=== PATIENT | male | born 1990 | race Caucasian/White ===

== ENCOUNTER 2020-04-24 14:24 | Outpatient (CLI) | payer BC, SELFPAY ==
--- NOTE | ~2020-04-24 | CT_ITS ---
EXAMINATION: CT sinus wo con DATE: 04/24/2020 14:40 INDICATION: Congestion. Chronic sinusitis. TECHNIQUE: Computed tomography (CT) of the paranasal sinuses was performed without contrast. Iterativ e reconstruction technique was employed. Exam dose: 289.66 mGy-cm total exam DLP. COMPARISON: None FINDINGS: There is prominent rightward deviation of the nasal septum. There is prominent soft tissue swelling of the inferior nasal turbinate, moderate prominent soft tiss ue swelling of the middle nasal turbinates. The ostiomeatal units are patent. The paranasal sinuses are normally developed and aerated. The mastoid air cells are normally developed and aerated. IMPRESSION: Prominent rightward deviation of nasal septum Soft tissue swelling of the nasal turbinates Patent paranasal sinuses, ostiomeatal units and mastoid air cells Reviewed, dictated and finalized at [facility]. Reviewed, dictated and finalized at location A. [employer]
== END 2020-04-24 14:25 | disposition home or self-care (01) ==
PROVIDERS: PCP Physician Assistant; Visit Provider Physician Assistant
DX: J32.9 Chronic sinusitis, unspecified (principal)
CPT/HCPCS: 70486

== ENCOUNTER 2021-05-10 18:53 | Emergency (ER) | payer BC, SELFPAY ==
--- NOTE | ~2021-05-10 | XR_ITS ---
XR hand LT min 3V 05/10/2021 19:57 Indication: Left hand pain after injury Procedure: 3 views left hand Comparison: 09/29/2007 Findings: There is a comminuted displaced tuft fracture left third distal phalanx with overlying soft tissue swelling. No foreign bodies. There is overlying soft tissue laceration. No other fracture. Impression: 1: Comminuted displaced tuft fracture left third distal phalanx. Reviewed, dictated and finalized at location A. TRICAL HARDWARE ENGINEER Impression: 1: Comminuted displaced tuft fracture left third distal phalanx.
[2021-05-10 19:18] VITALS: BP 124/84; PULSE 84; RESP 18; TEMP 36.3; O2SAT 100
--- NOTE | 2021-05-10 21:46 | ED.UPPEXIN ---
HPI - Extremity Injury (Upper) General Chief Complaint: Extremity Injury, Upper Stated Complaint: crush injury to finger Time Seen by Provider: 05/10/21 20:58 Source: patient Mode of arrival: ambulatory Limitations: no limitations History of Present Illness HPI narrative: This is a 30 year old male that presents to the ER for left third finger injury sustained yesterday. Reports he got his finger caught in a side by side. This happened yesterday afternoon. He wrapped it up and drove back home. He is not up to date on tetanus. Denies decreased ROM or numbness. Related Data Allergies Allergy/AdvReac Type Severity Reaction Status Date / Time No Known Drug Allergies Allergy Mild Unknown Verified 04/21/20 16:03 Review of Systems Review of Systems: CONSTITUTIONAL: Denies fever SKIN: Reports laceration MUSCULOSKELETAL: Reports joint pain, and myalgia. NEUROLOGIC: Denies numbness All systems reviewed & are unremarkable except as noted in HPI and below PMFSH Past Medical History Medical History (Updated 05/10/21 @ 23:04 by Mariah Simms PA-C) Healthy adult male Surgical History Surgical History No history of previous surgery Family History Family History Mother Patient's mother is in good health Father Patient's father is in good health Social History Social History Smoking status: Never smoker Second hand tobacco smoke exposure: No Alcohol intake: never Gender identity (if verbalized by the patient): Male Exam Narrative: GENERAL: Well-appearing, well-nourished, and in no acute distress. HEAD: Normocephalic, atraumatic. EYES: EOMI. EXTREMITIES: Normal range of motion. Left third finger distal phalanx with nail avulsed. Palmar aspect of the distal phalanx with superficial avulsion of the skin. Normal radial pulses. Normal sensation SKIN: Warm, dry, no rash. NEURO: No focal deficits. Alert and oriented x3. PSYCH: Normal mood and affect Course Vital Signs Vital signs: Vital Signs Temperature 97.4 F L 05/10/21 19:18 Pulse Rate 84 05/10/21 19:18 Respiratory Rate 18 05/10/21 19:18 Blood Pressure 124/84 05/10/21 19:18 Pulse Oximetry 100 05/10/21 19:18 Temperature 97.4 F L 05/10/21 19:18 Pulse Rate 84 05/10/21 19:18 Respiratory Rate 18 05/10/21 19:18 Blood Pressure 124/84 05/10/21 19:18 Pulse Oximetry 100 05/10/21 19:18 Procedures Laceration Laceration 1: Date: 05/10/21 Time: 23:00 Site: hand Side (If applicable): left Description: other (skin and nail avulsion) Local Anesthetic: lidocaine 1% Amount of anesthesia used (mL): 4 Pre-repair: irrigated extensively ====== Skin Level ====== ====== Subcutaneous Layer ====== ====== Muscle Layer ====== ====== Tendon Layer ====== Dressing: Wound was irrigated and covered with antibiotic ointment and a bandage Orthopedic Splinting/Casting Injury #1: Splinting/Casting Date: 05/10/21 Splinting/Casting Time: 23:00 Side: left Upper Extremity Injury Location: finger Upper Extremity Immobilizer: finger (other) Splint: prefabricated Pre-Formed: metal foam finger splint Pre-Procedure Neuro Vascular Exam: normal Post-Procedure Neuro Vascular Exam: normal MDM - Extremity Injury (Upper) MDM Narrative Medical decision making narrative: Patient presents to the emergency department after a left third finger injury sustained yesterday. Patient had avulsed some skin and his nail to the distal phalanx. His wound was thoroughly irrigated. He was updated on tetanus. Left hand x-ray shows a comminuted displaced tuft fracture of the left third distal phalanx. Wound was bandaged and splint applied. Patient was educated on wound care.
[2021-05-10] MEDS: LIDOCAINE HCL 1% LOCAL INJ 20 ML VIAL INFILTRATE (22:10)
[2021-05-10] MEDS: ceFAZolin SODIUM 1 GM VIAL IM (22:10)
[2021-05-10] MEDS: HYDROcodone/acetaminophen (*CRX) 5-325 MG TABLET 1 TAB PO (22:10)
[2021-05-10] MEDS: WATER, STERILE FOR INJECTION 10 ML VIAL XX (22:10)
[2021-05-10] MEDS: TETANUS,DIPHTHERIA,AC PERTUSSIS ADULT (0.5 ML) BOOSTRIX IM (22:14)
[2021-05-10 23:25] VITALS: BP 123/78; PULSE 79; RESP 18; O2SAT 99
== END 2021-05-10 23:26 | disposition home or self-care (01) ==
PROVIDERS: Emergency Provider Emergency Medicine; PCP Physician Assistant
DX: S62.633B Displaced fracture of distal phalanx of left middle finger, initial encounter for open fracture (principal); Z23 Encounter for immunization; W23.0XXA Caught, crushed, jammed, or pinched between moving objects, initial encounter
CPT/HCPCS: 29130; 73130; 90471; 90715; 96372; 99283; 99284; A9270; J0690

== ENCOUNTER 2024-08-22 13:04 | Emergency (ER) | payer BC, SELFPAY ==
[2024-08-22 13:06] VITALS: BP 136/93; PULSE 66; RESP 14; TEMP 36.6; O2SAT 99
[2024-08-22] MEDS: HYDROcodone/acetaminophen (*CRX) 5-325 MG TABLET 2 TAB PO (14:27)
[2024-08-22] MEDS: KETOROLAC 30 MG/ML VIAL (*BKC) IM (14:27)
--- OUTSIDE RECORDS SUMMARY | 2024-08-22 14:29 | XMS_ITS | Clinical Summary ---
Author Organization [facility] Address [address] [place] [address] Phone Care Team Providers Care Assisted Living Assistant Name Role Phone Joaquin Garibay PA-C Primary Care Provide r Medications HYDROcodone-acet aminophen (NORCO) 5-325 mg tablet Take 1 Tablet by mouth every 4 hours as needed for Pain, Moderate. Active ibuprofen (MOTRIN) 600 mg tablet Take 600 mg by mouth every 6 hours as needed for Pain, Mild. Active chlorhexidine gluconate 0.12 % Mouthwash 15 mL by Mouth/Throa t route 2 times daily. 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 Patient declined 06/01/2019 Within the last year, have y ou been humiliated or emotionally abused in other ways by your partner or ex-partner? Patient declined 06/01/2019 Within the last year, have y ou been kicked, hit, slapped, or otherwise physically hurt by your partner or ex-partner? Patient declined 06/01/2019 Within the last year, have y ou been raped or forced to have any kind of sexual activity by your partner or ex-partner? Patient declined 06/01/2019 Social Connections Answer Date Recorded In a typical week, how many times do you talk on the phone with family, friends, or neighbors? Patient declined 06/01/2019 How often do you get togethe r with friends or relatives? Patient declined 06/01/2019 How often do you attend hinduism or episcopalian serv ices? Patient declined 06/01/2019 Do you belong to any clubs o r organizations such as hinduism groups, unions, fraternal or athletic groups, or school groups? Patient declined 06/01/2019 How often do you attend meet ings of the clubs or organizations you belong to? Patient declined 06/01/2019 Are you , , di vorced, , never , or living with a partner? Patient declined 06/01/2019 Financial Resource Strain Answer Date R ecorded How hard is it for you to pa y for the very basics like food, housing, medical care, and heating? Not hard at all 06/01/2019 Food Insecurity Answer Date Recorded Within the past 12 months, y ou worried that your food would run out before you got the money to buy more. Never true 06/01/20 19 Within the past 12 months, t he food you bought just didn't last and you didn't have money to get more. Never true 06/01/2019 Transportation Needs Answer Date Record ed In the past 12 months, has l ack of transportation kept you from medical appointments or from getting medications? No 05/14 In the past 12 months, has l ack of transportation kept you from meetings, work, or from getting things needed for daily living? No 06/01/2019 Sex and Gender Information Value Date Recorded Sex Assigned at Not on file Legal Sex Male 1:19 AM SANITATION TECHNICIAN Gender Identity Not on file Sexual Orientation Not on file Last Filed Vital Signs Vital Sign Reading Time Taken Comments Blood Pressure 120/64 06/02/2019 10:56 AM SANITATION TECHNICIAN Pulse 75 06/02/2019 10:56 AM SANITATION TECHNICIAN Temperature 36.6 C (97.9 F) 06/02/2019 7:07 AM SANITATION TECHNICIAN Respiratory Rate 17 06/02/2019 10:56 AM SANITATION TECHNICIAN Oxygen Saturation 99% 06/02/2019 10:56 AM SANITATION TECHNICIAN Inhaled Oxygen Concentration - - Weight 74.8 kg (165 lb) 06/01/2019 12:54 AM SANITATION TECHNICIAN Height 180.3 cm (5' 11 ) 06/01/2019 12:54 AM SANITATION TECHNICIAN Body Mass Index 23.01 06/01/2019 12:54 AM SANITATION TECHNICIAN Plan of Treatment Health Maintenance Due Date Last Done Comments DTAP/TDAP/TD VACCINES (1 - Tdap) 11/12/2011 HEPATITIS B VACCINES (1 of 3 - 19+ 3-dose series) 11/12/2011 INFLUENZA VACCINE (#1) 2024 HPV VACCINES Aged Out No longer eligi ble based on patient's age to complete this topic PNEUMOCOCCAL VACCINE 0-49 YEARS Aged Out No longer eligible based on patient's age to complete this topic Insurance [facility] [employer] Advance Directives For more information, please contact: [phone] * Full Code (Latest Code Status on File) Date Activated Date Inactivated Comments 06/01/2019 2:41 AM 06/02/2019 4:59 PM Care Teams Assisted Living Assistant Relationship Specialty Start Date End Date Joaquin Garibay PA-C PCP - General Physician Production Troubleshooter 05/31/19
--- NOTE | 2024-08-22 14:47 | ED_ITS ---
HPI - General Adult General Chief complaint: Dental/Oral Stated complaint: dental pain after antibiotics Time Seen by Provider: 08/22/24 13:19 History of Present Illness HPI narrative: This is a 33-year-old male presenting for dental pain. He has been having right lower molar pain for the last 3 weeks. He saw a dentist was told he had a dental infection last week. He is placed on Augmentin. He has not had any improvement in his pain. His pain is now radiating into his muslim and his neck. Denies fevers chills nausea vomiting diarrhea. He is tolerating food and secretions were Related Data Allergies Allergy/AdvReac Type Severity Reaction Status Date / Time No Known Drug Allergies Allergy Mild Unknown Verified 08/22/24 13:05 [facility] Past Medical History Medical History (Updated 08/22/24 @ 14:49 by Eamon Vega MD) Healthy adult male Surgical History Surgical History No history of previous surgery Family History Family History Mother Patient's mother is in good health Father Patient's father is in good health Social History Social History Smoking status: Never smoker Second hand tobacco smoke exposure: No Alcohol intake: never Gender identity (if verbalized by the patient): Male Exam Narrative: APPEARANCE: No apparent distress. Head: Multiple dental caries in the right lower molars. No fluctuant masses to indicate abscess. So roof of the mouth is soft. No swelling to the external jaw or neck. EYES: EOMI, NOSE: Atraumatic NECK: Trachea midline RESPIRATORY: No increased rate of breathing CARDIOVASCULAR: RRR, ABDOMINAL: Non-distended MUSCULOSKELETAl: No obvious deformities NEURO: Alert. Moving 4/4 extremities SKIN:: Warm, dry. Normal color PSYCHIATRIC: Normal affect Course Vital Signs Vital signs: Vital Signs Temperature 97.8 F 08/22/24 13:06 Pulse Rate 66 08/22/24 13:06 Respiratory Rate 14 08/22/24 13:06 Blood Pressure 136/93 H 08/22/24 13:06 Pulse Oximetry 99 08/22/24 13:06 Oxygen Delivery Room Air 08/22/24 13:06 Temperature 97.8 F 08/22/24 13:06 Pulse Rate 66 08/22/24 13:06 Respiratory Rate 14 08/22/24 13:06 Blood Pressure 136/93 H 08/22/24 13:06 Pulse Oximetry 99 08/22/24 13:06 Oxygen Delivery Room Air 08/22/24 13:06 Medical Decision Making MDM Narrative Medical decision making narrative: -Course: 33-year-old male presenting with dental pain. Given pain medication. Inferior alveolar block was performed. Patient will be placed on clindamycin and amoxicillin has not helped. He has been encouraged follow-up with a dentist. Given return precautions. -DDX includes but is not limited to: Dental caries, dental infection, nico's Vital Signs Vital Signs: Vital Signs Temperature 97.8 F 08/22/24 13:06 Pulse Rate 66 08/22/24 13:06 Respiratory Rate 14 08/22/24 13:06 Blood Pressure 136/93 H 08/22/24 13:06 Pulse Oximetry 99 08/22/24 13:06 Oxygen Delivery Room Air 08/22/24 13:06 Temperature 97.8 F 08/22/24 13:06 Pulse Rate 66 08/22/24 13:06 Respiratory Rate 14 08/22/24 13:06 Blood Pressure 136/93 H 08/22/24 13:06 Pulse Oximetry 99 08/22/24 13:06 Oxygen Delivery Room Air 08/22/24 13:06 Discharge Plan Discharge Clinical Impression: Tooth ache Patient Disposition: Home, Self-Care Condition: Stable Instructions: Antibiotic Form, Toothache (ED) Additional Instructions: Please take Motrin/Tylenol for pain control. Please complete a course of clindamycin. Please follow-up with your dentist for further management. If you feel your pain is unbearable, you develop swelling of your mouth or neck, or difficulty swallowing or breathing please return to the ED for re-evaluation. Patient Language: Cape Verdean Prescriptions: New clindamycin HCl 150 mg capsule 450 mg PO Q8H 10 Days Qty: 90 0RF ibuprofen 800 mg tablet 800 mg PO TID PRN (Reason: pain) 7 Days Qty: 21 0RF acetaminophen 500 mg tablet 1,000 mg PO TID PRN (Reason: sahara) 7 Days Qty: 42 0RF No Action hydrocodone-acetaminophen 5-325 mg tablet 1 tablet PO Q6H PRN (Reason: pain) Qty: 60 0RF cephalexin 500 mg capsule 500 mg PO Q6H 7 Days Qty: 28 0RF Follow-up/Referrals: Lani,Joaquin Sood PASherylC [Primary Care Provider] - Stand Alone Forms: Work/School Release IP
--- OUTSIDE RECORDS SUMMARY | 2024-08-22 16:07 | XMS_ITS | Referral Summary ---
Author Organization [facility] Address [address] [place] [address] Care Team Providers Care Liability Analyst Name Role Phone Carlos Gabriel MD Primary Care Provider Source Comments [facility] [employer],non-owned Affiliates and Associated Physician Practices is amultiple site organization consisting of ambulatory clinics and hospital sitesin [place], [place], [place] and [place]. This disclosure is being madepursuant to the Care Everywhere program and may not contain all information available regarding this patient. Last updated 18.[facility] [employer] Medications * Be aware that medications may not be up to date on this document. Alwaysverify current medications with the patient. Medication Sig Dispensed Refills Start Date End Date Status methylphenidate CR (CONCERTA) 36 MG tablet Take 36 mg by mouth every morning. Active Active Problems No known active problems Social History Tobacco Use Types Packs/Day Years Used Date Smoking Tobacco: Never Alcohol Use Standard Drinks/Week Comments No 0 (1 standard drink = 0.6 oz pur e alcohol) Sex and Gender Information Value Date Recorded Sex Assigned at Not on file Gender Identity Not on file Sexual Orientation Not on file Plan of Treatment Not on file Care Teams Liability Analyst Relationship Specialty Start Date End Date Carlos Gabriel MD [address] [place] [address] PCP - General 03/23/10
--- OUTSIDE RECORDS SUMMARY | 2024-08-22 16:07 | XMS_ITS | Clinical Summary ---
Author Organization [facility] Address [address] [place] [address] Phone Care Team Providers Care Sand Operator Name Role Phone Joaquin Garibay PA-C Primary [...] declined 06/01/2019 How often do you attend buddhist or rastafari serv ices? Patient declined 06/01/2019 Do you belong to any clubs o r organizations such as buddhist groups, unions, fraternal or athletic groups, or [...] on file Legal Sex Male 1:19 AM MANAGER DIGITAL AD OPERATIONS Gender Identity Not on file Sexual Orientation Not on file Last Filed Vital Signs Vital Sign Reading Time Taken Comments Blood Pressure 120/64 06/02/2019 10:56 AM MANAGER DIGITAL AD OPERATIONS Pulse 75 06/02/2019 10:56 AM MANAGER DIGITAL AD OPERATIONS Temperature 36.6 C (97.9 F) 06/02/2019 7:07 AM MANAGER DIGITAL AD OPERATIONS Respiratory Rate 17 06/02/2019 10:56 AM MANAGER DIGITAL AD OPERATIONS Oxygen Saturation 99% 06/02/2019 10:56 AM MANAGER DIGITAL AD OPERATIONS Inhaled Oxygen Concentration - - Weight 74.8 kg (165 lb) 06/01/2019 12:54 AM MANAGER DIGITAL AD OPERATIONS Height 180.3 cm (5' 11 ) 06/01/2019 12:54 AM MANAGER DIGITAL AD OPERATIONS Body Mass Index 23.01 06/01/2019 12:54 AM MANAGER DIGITAL AD OPERATIONS Plan of Treatment Health Maintenance Due Date [...] patient's age to complete this topic Insurance [facility] [employer] Advance Directives For more information, please contact: [phone] * Full Code (Latest Code Status on File) Date Activated Date Inactivated Comments 06/01/2019 2:41 AM 06/02/2019 4:59 PM Care Teams Sand Operator Relationship Specialty Start Date End Date Joaquin Garibay PA-C PCP - General Physician Acidizer Helper 05/31/19
--- OUTSIDE RECORDS SUMMARY | 2024-08-22 16:07 | XMS_ITS | Clinical Summary ---
Author Organization [facility] Address [address] [place] [address] Care Team Providers Care Laboratory Immunologist Name Role Phone Carlos Gabriel MD Primary Care Provider Source Comments [facility] [employer],non-owned Affiliates and Associated Physician Practices is amultiple site organization consisting of ambulatory clinics and hospital sitesin [place], [place] and [place]. This disclosure is being madepursuant to the Care Everywhere program and may not contain all information available regarding this patient. Last updated 18.[facility] [employer] Medications * Be aware that medications may not be up to date on this document. Alwaysverify current medications with the patient. Medication Sig Dispensed Refills Start Date End Date Status methylphenidate CR (CONCERTA) 36 MG tablet Take 36 mg by mouth every morning. Active Active Problems No known active problems Family History Medical History Relation Name Comments Hypercholesterolemia Maternal Grandmother Hypertension Maternal Grandmother Rheumatological Disease Maternal Grandmother Diabetes Paternal Grandfather Relation Name Status Comments Maternal Grandmother Paternal Grandfather Social History Tobacco Use Types Packs/Day Years Used Date Smoking Tobacco: Never Alcohol Use Standard Drinks/Week Comments No 0 (1 standard drink = 0.6 oz pur e alcohol) Sex and Gender Information Value Date Recorded Sex Assigned at Not on file Gender Identity Not on file Sexual Orientation Not on file Plan of Treatment Health Maintenance Due Date Last Done Comments HIV SCREENING 11/12/2007 HEPATITIS C SCREENING 11/07/2010 DTAP/TDAP/TD VACCINES (1 - Tdap) 11/12/2011 HEPATITIS B VACCINE (1 of 3 - 19+ 3-dose series) 11/12/2011 COVID-19 VACCINE (2023-2 5 season) 2024 INFLUENZA VACCINE (#1) 2024 DEPRESSION SCREENING 06/13/2024 ZOSTER VACCINE (1 of 2) 2042 HIB VACCINE Aged Out No longer eligi ble based on patient's age to complete this topic HPV VACCINE Aged Out No longer eligi ble based on patient's age to complete this topic MENINGOCOCCAL (Group B) VACC INE SHARED DECISION-MAKING Aged Out No longer eligibl e based on patient's age to complete this topic MENINGOCOCCAL GROUPS A/C/Y/W VACCINE Aged Out No longer eligible b ased on patient's age to complete this topic PNEUMOCOCCAL VACCINE Aged Out No long er eligible based on patient's age to complete this topic Care Teams Laboratory Immunologist Relationship Specialty Start Date End Date Carlos Gabriel MD [address] [place] [address] PCP - General 03/23/10
--- OUTSIDE RECORDS SUMMARY | 2024-08-22 16:07 | XMS_ITS | Patient Health Summary ---
Author Organization [facility] [employer] Address [address] [facility] [place] [address] Care Team Providers Care Certified Dialysis Technician Name Role Phone Carlos Gabriel MD Primary Care Provider Note from [facility],non-owned Affiliates and Associated Physician Practices is amultiple site organization consisting of ambulatory clinics and hospital sitesin [place], [place], [place] and [place]. This disclosure is being madepursuant to the Care Everywhere program and may not contain all information available regarding this patient. Last updated 18.[facility] [employer] Medications * Be aware that medications may not be up to date on this document. Alwaysverify current medications with the patient. * methylphenidate CR (CONCERTA) 36 MG tablet Take 36 mg by mouth every morning. Active Problems No known active problems Social History Tobacco Use Types Packs/Day Years Used Date Smoking Tobacco: Never Alcohol Use Standard Drinks/Week Comments No 0 (1 standard drink = 0.6 oz pur e alcohol) Sex and Gender Information Value Date Recorded Sex Assigned at Not on file Gender Identity Not on file Sexual Orientation Not on file Procedures * IMAGING/RADIOLOGY/XRAY RESULTS ORDER(Performed 06/05/2010) Results * IMAGING/RADIOLOGY/XRAY RESULTS ORDER (06/05/2010 10:12 AM HR CONSULTANT) Anatomical Region Laterality Modality Other Narrative Procedure Note Document, Scanned - 04/16/2010 4:51 PM CDT Transcriptions Document, Scanned - 04/23/2010 10:23 AM HR CONSULTANT Document, Scanned - 06/02/2010 3:42 PM HR CONSULTANT Scanned Document IMAGING Care Teams Certified Dialysis Technician Relationship Specialty Start Date End Date Carlos Gabriel MD [address] [place] [address] [facility] - General 03/23/10
== END 2024-08-22 15:06 | disposition home or self-care (01) ==
PROVIDERS: Emergency Provider Emergency Medicine; PCP Physician Assistant
DX: K08.89 Other specified disorders of teeth and supporting structures (principal)
CPT/HCPCS: 96372; 99283; A9270; J1885

== ENCOUNTER 2024-09-14 13:08 | Emergency (ER) | payer BC, SELFPAY ==
--- NOTE | ~2024-09-14 | US_ITS ---
EXAMINATION:US venous doppler LE RT INDICATION:Right leg swelling TECHNIQUE: Multiple grayscale, color flow and Doppler images of the right lower extremity deep venous systems were obtained and reviewed. COMPARISON:No prior studies for comparison. FINDINGS: The common femoral, superficial femoral and popliteal veins demonstrate normal respiratory variation, augmentation and compressibility. Color flow is also seen within the posterior tibial, pe roneal, greater saphenous and profunda veins. IMPRESSION: 1: No lower extremity deep venous thrombosis. Reviewed, dictated and finalized at location A.
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
--- OUTSIDE RECORDS SUMMARY | 2024-09-14 13:11 | XMS_ITS | Clinical Summary ---
Author Organization [facility] Address [address] [facility] [place] [address] Care Team Providers Care Mitten Sewer Name Role Phone Joaquin Garibay PA-C Primary Care Provide r Source Comments [facility],non-owned [facility] and Associated Physician Practices is amultiple site organization consisting of ambulatory clinics and hospital sitesin [place], [place], [place] and [place]. This disclosure is being madepursuant to the Care Everywhere program and may not contain all information available regarding this patient. Last updated 18.[facility] Allergies No known active allergies Medications * Be aware that medications may not be up to date on this document. Alwaysverify current medications with the patient. Medication Sig Dispensed Refills Start Date End Date Status methylphenidate CR (CONCERTA) 36 MG tablet Take 36 mg by mouth every morning. Active Active Problems No known active problems Encounters Date Type Department Care Team Description 08/23/2024 7:27 AM CDT - 08/23/2024 10:16 AM T Emergency [facility] EMERGENCY DEPARTMENT [address] [place] [address] Con Bronson MD Pain, dental (Primary Dx); Dental infection Discharge Disposition: Home or Self Care 08/23/2024 Travel from Last 3 Months Family History Medical History Relation Name Comments [...] Sign Reading Time Taken Comments Blood Pressure 142/86 08/23/2024 6:54 AM CDT Pulse 75 08/23/2024 6:54 AM CDT Temperature 36.3 C (97.4 F) 08/23/2024 6:54 AM CDT Respiratory Rate 16 08/23/2024 6:54 AM CDT Oxygen Saturation 98% 08/23/2024 6:54 AM CDT Inhaled Oxygen Concentration - - Weight 79.4 kg (175 lb) 08/23/2024 6:54 AM CDT Height 180.3 cm (5' 11 ) 08/23/2024 6:54 AM CDT Body Mass Index 24.41 08/23/2024 6:54 AM CDT Plan of Treatment Health Maintenance Due Date Last Done Comments HIV SCREENING 11/12/2007 HEPATITIS C SCREENING 11/07/2010 DTAP/TDAP/TD VACCINES (1 - Tdap) 11/12/2011 HEPATITIS B VACCINE (1 of 3 - 19+ 3-dose series) 11/12/2011 COVID-19 VACCINE ( - 2023-2 5 season) 2024 05/05/2021, 04/14/2021 DEPRESSION SCREENING 06/13/2024 INFLUENZA VACCINE (Season Ended) 2025 ZOSTER VACCINE (1 of 2) 2042 HIB VACCINE Aged Out No longer eligi ble based on patient's age to complete this topic HPV VACCINE Aged Out No longer eligi ble based on patient's age to complete this topic MENINGOCOCCAL (Group B) VACCINE SHARED DECISION-MAKING Aged Out No longer eligible based on patient's age to complete this topic MENINGOCOCCAL GROUPS A/C/Y/W VACCINE Aged Out No longer eligible b ased on patient's age to complete this topic PNEUMOCOCCAL VACCINE Aged Out No long er eligible based on patient's age to complete this topic Procedures Procedure Name Priority Date/Time Associated Diagnosis Comments ED DENTAL BLOCK Routine 08/23/2024 9:58 AM CDT from Last 3 Months Results * Dental Block (08/23/2024 9:58 AM CDT) Narrative Con Bronson MD - 08/23/2024 9:58 AM CDT Irene Aguirre MD 08/23/2024 10:33 AM Dental Block Date/Time: 08/23/2024 9:58 AM Performed by: Irene Aguirre MD Authorized by: Con Bronson MD Consent: Consent obtained: Verbal Consent given by: Patient Risks, benefits, and alternatives were discussed: yes Risks discussed: Unsuccessful block, swelling, nerve damage, pain, intravascular injection, infection, allergic reaction and hematoma Alternatives discussed: No treatment and delayed treatment Adger protocol: Patient identity confirmed: Verbally with patient Indications: Indications: dental pain Location: Block type: Inferior alveolar Laterality: Right Procedure details: Syringe type: Aspirating dental syringe Needle gauge: 27 G Anesthetic injected: Bupivacaine 0.5% WITH epi Injection procedure: Anatomic landmarks palpated, negative aspiration for blood, incremental injection, introduced needle and anatomic landmarks identified Post-procedure details: Outcome: Pain improved Procedure completion: Tolerated well, no immediate complications Con Bronson MD PROCEDURE/MINOR SURG ICAL ORDERABLES from Last 3 Months Care Teams Mitten Sewer Relationship Specialty Start Date End Date Joaquin Garibay PA-C [address] [facility] [address] [place] [address] PCP - General Physician Account Manager Relief 08/23/24
--- OUTSIDE RECORDS SUMMARY | 2024-09-14 13:11 | XMS_ITS | Clinical Summary ---
Author Organization [facility] Address [address] [place] [address] Phone Care Team Providers Care Plant Equipment Engineer Name Role Phone Joaquin Garibay PA-C Primary [...] declined 06/01/2019 How often do you attend denominational or confucianism serv ices? Patient declined 06/01/2019 Do you belong to any clubs o r organizations such as denominational groups, unions, fraternal or athletic groups, or [...] on file Legal Sex Male 1:19 AM WOMEN'S GARMENT FITTER Gender Identity Not on file Sexual Orientation Not on file Last Filed Vital Signs Vital Sign Reading Time Taken Comments Blood Pressure 120/64 06/02/2019 10:56 AM WOMEN'S GARMENT FITTER Pulse 75 06/02/2019 10:56 AM WOMEN'S GARMENT FITTER Temperature 36.6 C (97.9 F) 06/02/2019 7:07 AM WOMEN'S GARMENT FITTER Respiratory Rate 17 06/02/2019 10:56 AM WOMEN'S GARMENT FITTER Oxygen Saturation 99% 06/02/2019 10:56 AM WOMEN'S GARMENT FITTER Inhaled Oxygen Concentration - - Weight 74.8 kg (165 lb) 06/01/2019 12:54 AM WOMEN'S GARMENT FITTER Height 180.3 cm (5' 11 ) 06/01/2019 12:54 AM WOMEN'S GARMENT FITTER Body Mass Index 23.01 06/01/2019 12:54 AM WOMEN'S GARMENT FITTER Plan of Treatment Health Maintenance Due Date Last Done Comments DTAP/TDAP/TD VACCINES (1 - Tdap) 11/12/2011 HEPATITIS B VACCINES (1 of 3 - 19+ 3-dose series) 11/12/2011 INFLUENZA VACCINE (#1) 2024 HPV VACCINES Aged Out No longer eligi ble based on patient's age to complete this topic Insurance [facility] [employer] Advance Directives For more information, please contact: [phone] * Full Code (Latest Code Status on File) Date Activated Date Inactivated Comments 06/01/2019 2:41 AM 06/02/2019 4:59 PM Care Teams Plant Equipment Engineer Relationship Specialty Start Date End Date Joaquin Garibay PA-C PCP - General Physician Activity Coordinator 05/31/19
--- OUTSIDE RECORDS SUMMARY | 2024-09-14 13:11 | XMS_ITS | Clinical Summary ---
Author Organization [facility] Address [address] [place] [phone] Care Team Providers Care Dispatch Associate Name Role Phone Joaquin Garibay Primary Care Provider Allergies No known active allergies Medications HYDROcodone-acet [...] to 30 doses 30 tablet 09/07/2024 Active Encounters Date Type Department Care Team Description 09/07/2024 9:11 PM CDT - 09/07/2024 10:25 PM CDT Emergency [facility] Emergency Department [address] [place] [phone] Traumatic hematoma of right lower leg (Primary Dx) Discharge Disposition: Discharge to home or self care from Last 3 Months Social History Tobacco Use Types Packs/Day Years [...] on file Sexual Orientation Not on file Obstetrics History Last Filed Vital Signs Vital Sign Reading [...] 09/07/2024 8:44 PM CDT Plan of Treatment Health Maintenance Due Date Last Done Comments Depression Screening 1992 Hepatitis C Screening 1992 DTaP/Tdap/Td Vaccine (1 - Tdap) 11/12/2003 Varicella Vaccines (1 of 2 - 13+ 2-dose series) 2005 Hepatitis B Screening 2010 Regular Well Visit/Exam 18-64 2010 Influenza Vaccine (Season Ended) 2025 HPV Vaccines Aged Out No longer eligi ble based on patient's age to complete this topic Pneumococcal vaccine <65 Aged Out No longer eligible based on [...] Res ult from Last 3 Months Insurance [employer] [place] Care Teams Dispatch Associate Relationship Specialty Start Date End Date Joaquin Garibay PA [address] [facility] [address] [place] [address] PCP - General Physician Access Specialist 09/07/24
[2024-09-14 13:18] VITALS: BP 133/68; PULSE 75; RESP 16; TEMP 36.6; O2SAT 100
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
[2024-09-14 14:44] VITALS: BP 135/76; PULSE 71; RESP 16; O2SAT 99
== END 2024-09-14 14:51 | disposition home or self-care (01) ==
PROVIDERS: Emergency Provider Emergency Medicine; PCP Physician Assistant
DX: S80.11XA Contusion of right lower leg, initial encounter (principal); V86.59XA Driver of other special all-terrain or other off-road motor vehicle injured in nontraffic accident, initial encounter
CPT/HCPCS: 73610; 93971; 99284